=== PATIENT | female | born 1975 | race Caucasian/White ===

== ENCOUNTER → 2024-11-14 | Outpatient (CLI) | payer MEDICAID, SELFPAY ==
--- NOTE | 2024-11-14 | XR_ITS ---
EXAMINATION: Ankle, right 3 views . Technique: Ankle AP, oblique, lateral 3 views Date and time of exam: November 06, 2024 at 1123 hours INDICATIONS: Injury to the ankle 2021 with persistent ankle pain. FINDINGS: No fracture or dislocation Mild narrowing tibiotalar joint 3 mm posterior bony calcaneal spur IMPRESSION: No fracture. Early osteoarthritis tibiotalar joint
--- NOTE | 2024-11-14 | XR_ITS ---
Examination: Knee, left , 3 views Technique: Knee AP, lateral, oblique 3 views Date and time of exam: November 14, 2024 1123 hours INDICATIONS: Left knee pain beginning 3 months ago. FINDINGS: Mild narrowing medial joint space No fracture or dislocation Small knee effusion IMPRESSION: Mild narrowing medial joint space
== END | disposition home or self-care (01) ==
PROVIDERS: PCP Nurse Practitioner Family; Referring Provider Nurse Practitioner Family; Visit Provider Nurse Practitioner Family
DX: M25.862 Other specified joint disorders, left knee (principal); M19.071 Primary osteoarthritis, right ankle and foot; S99.911S Unspecified injury of right ankle, sequela; X58.XXXS Exposure to other specified factors, sequela
CPT/HCPCS: 73562; 73610